=== PATIENT | female | born 1960 | race Caucasian/White ===

== ENCOUNTER → 2018-06-06 15:22 | Outpatient (CLI) | payer OTHER, SELFPAY | PROVIDERS: Family Provider Family Medicine; PCP Family Medicine; Referring Provider Otolaryngology Otolaryngology/Facial Plastic Surgery; Visit Provider Otolaryngology Otolaryngology/Facial Plastic Surgery | DX: J32.9 Chronic sinusitis, unspecified (principal); J02.9 Acute pharyngitis, unspecified | CPT/HCPCS: 87070 ==

== ENCOUNTER → 2018-09-27 | Outpatient (CLI) | payer OTHER, SELFPAY ==
--- NOTE | 2018-09-27 08:18 | BI_ITS ---
MAMMOGRAPHY - BILATERAL SCREENING REASON FOR EXAM: Female, 58 years old. Routine annual screening examination. PERTINENT HISTORY: Grandmother with breast cancer. TECHNIQUE: Digital bilateral breast gin (3D mammographic acquisition) in the CC and MLO projections. 2-D mediolateral oblique (MLO) and craniocaudad (CC) views of both breasts were obtained. CAD: Full Field Digital Mammography with Computer Added Detection was performed. COMPARISON: Comparison is made with prior examination dated March 30, 2016 and December 11, 2014. FINDINGS: Breast Composition: The breasts are heterogeneously dense, which may obscure small masses. There are no dominant masses or suspicious calcifications. Stable small bilateral axillary lymph nodes. No other significant abnormalities are identified. There has been no significant change since the prior study. BI/SCREEN MAMM (CAD) W/GIN BILAT IMPRESSION: Stable bilateral screening mammogram. Yearly follow-up mammogram recommended. (A) ASSESSMENT CATEGORY: BIRADS Category 2: Benign. A letter regarding these results will be sent to the patient by the facility within 30 days. Approximately 10% of breast cancers are not detected by mammography. A normal mammogram should not delay biopsy of a clinically suspicious abnormality. [id number] Electronically Signed: Jose Floyd, at 9:44 EDT , Service support ,
== END | disposition home or self-care (01) ==
LOC: OPBI 08:14
PROVIDERS: Family Provider Family Medicine; PCP Family Medicine
DX: Z12.31 Encounter for screening mammogram for malignant neoplasm of breast (principal)
CPT/HCPCS: 77063; 77067

== ENCOUNTER → 2020-06-18 08:20 | Outpatient (CLI) | payer OTHER, SELFPAY ==
--- NOTE | 2020-06-18 08:23 | BI_ITS ---
MAMMOGRAPHY - BILATERAL SCREENING REASON FOR EXAM: Female, 59 years old. Routine annual screening examination. PERTINENT HISTORY: Grandmother with breast cancer. TECHNIQUE: Digital bilateral breast gin (3D mammographic acquisition) in the CC and MLO projections. 2-D mediolateral oblique (MLO) and craniocaudad (CC) views of both breasts were obtained. CAD: Full Field Digital Mammography with Computer Added Detection was performed. COMPARISON: Comparison is made with prior study dated 09/27/2018 and 03/30/2016. FINDINGS: Breast Composition: The breasts are heterogeneously dense, which may obscure small masses. There are no dominant masses or suspicious calcifications. Stable benign-appearing bilateral axillary lymph nodes. No other significant abnormalities are identified. There has been no significant change since the prior study. BI/SCRN MAMM (CAD)W/GIN BILAT IMPRESSION: Stable bilateral screening mammogram. Yearly follow-up mammogram recommended. (A) ASSESSMENT CATEGORY: BIRADS Category 2: Benign. A letter regarding these results will be sent to the patient by the facility within 30 days. Approximately 10% of breast cancers are not detected by mammography. A normal mammogram should not delay biopsy of a clinically suspicious abnormality. [id number] Electronically Signed: Jose Floyd MD at 8:54 EST , Service support ,
== END ==
PROVIDERS: PCP Family Medicine; Referring Provider Nurse Practitioner Family; Visit Provider Nurse Practitioner Family
DX: Z12.31 Encounter for screening mammogram for malignant neoplasm of breast (principal)
CPT/HCPCS: 77063; 77067

== ENCOUNTER → 2021-06-26 08:02 | Outpatient (CLI) | payer OTHER, SELFPAY ==
--- NOTE | 2021-06-26 08:12 | BI_ITS ---
MAMMOGRAPHY - BILATERAL SCREENING REASON FOR EXAM: Female, 60 years old. Routine annual screening examination. PERTINENT HISTORY: Grandmother with breast cancer. TECHNIQUE: Digital bilateral breast gin (3D mammographic acquisition) in the CC and MLO projections. 2-D mediolateral oblique (MLO) and craniocaudad (CC) views of both breasts were obtained. CAD: Full Field Digital Mammography with Computer Added Detection was performed. COMPARISON: Comparison is made with prior study 06/18/2020 and 09/27/2018. FINDINGS: Breast Composition: The breasts are heterogeneously dense, which may obscure small masses. There are no dominant masses or suspicious calcifications. Stable small benign-appearing bilateral axillary lymph nodes. No other significant abnormalities are identified. There has been no significant change since the prior study. BI/SCRN MAMM (CAD)W/GIN BILAT IMPRESSION: Stable bilateral screening mammogram. Yearly follow-up mammogram recommended. (A) ASSESSMENT CATEGORY: BIRADS Category 2: Benign. A letter regarding these results will be sent to the patient by the facility within 30 days. Approximately 10% of breast cancers are not detected by mammography. A normal mammogram should not delay biopsy of a clinically suspicious abnormality. [id number] Electronically Signed: Jose Floyd MD at 9:20 EST ,
== END ==
PROVIDERS: PCP Family Medicine
DX: Z12.31 Encounter for screening mammogram for malignant neoplasm of breast (principal)
CPT/HCPCS: 77063; 77067

== ENCOUNTER 2021-09-02 10:30 | Outpatient (RCR) | payer OTHER, SELFPAY ==
--- NOTE | 2021-08-20 10:00 | HP.PTEVAL_ITS ---
Patient's Visit Information JERALD UNGER is a 61 year old F referred to Physical Therapy by Dr. Xavi Medley MD with a diagnosis of Right Partial Knee Replacement (08/13/21). Date of Evaluation: 08/20/21 Physical Therapist: Crystal Zamudio DPT - Visit Plan Frequency: 1-2x /Week Duration: 4 Weeks Plan: Right Partial Knee Replacement 08/13/21. HEP Given: seated heel slide, seated bolster extension, SLR, Quad set, Bolster extension supine, supine heel slide - Subjective Right partial knee replacement by Dr. Mcbride 08/13/2021. She stayed in the hospital for one day and then went home. Lives in a single story home with h usband with 2 step to enter- no problems getting in/out. Fully I prior to surgery- goal is to get back to doing all of those things with less pain. At home she is doing exercises from the MD. Patient reports that the pain is surgical site pain. Last night was a rough night due to being up on it a lot yesterday. Currently a 4/10. Worst: 9/10 Agg: being up on it. Best: 0/10 Eases: rest, elevation, ice. Pain is located in the medial knee and some mild pain down the adkins bone. Describes the pain as dull and achy. Sometimes she has shooting pains. No N/T. No change or loss of bowel or bladder. Sleep: hard to get comfortable and will wake her up- she is normally in the bed but she has gone to the couch/recliner. Normally very active. Work: retired- she has 3 acres so she does a lot of yard maintenance. PMHx: none Meds: Synthroid, vitamins- Tramadol and Tylenol PRN- does have Percocet- last night was the first time she took one. - Objective Posture: FH, RS can correct but does not maintain. Gait: antalgic- step to pattern with FWW- decreased stance on the right LE. HR/TR: able with UE A- reports discomfort with HR SLS: weight shift but unable to SLS without UE A. Observation: bandage on incision- no s/s of infection. Palpation: tender throughout knee medial and lateral joint line. Transfers: able without A but slow requires UE A. ROM2: 20-90 degrees with gentle overpressure into flexion. Girth: Patella: 41.5, 6 above: 52. Strength: Core: fair, Hip: 4/5 throughout SLR: moderate lag. Knee: flexion: 12. Extn: 8. Flex: HS: severe, Gastroc: severe. - Balance/Special Test Scores Lower Extremity Functional Score: 21 TUG Test Time Seconds: 28 WOMAC Total Score: 60 WOMAC Percentatge: 37.5000 - Goals Goal 1:: Patient will be I with HEP and progression Goal Time Frame: 4-6 Weeks Goal 2:: Patient will ambulate >300 feet with a normalized gait pattern Goal Time Frame: 4-6 Weeks Goal 3:: Patient will asc/desc 8 stairs recip with no HR Goal Time Frame: 4-6 Weeks Goal 4:: Patient will demo 0-115 degrees of ROM Goal Time Frame: 4-6 Weeks Goal 5:: Patient will perform TUG in less than 10 seconds with LRD Goal Time Frame: 4-6 Weeks - Rehabilitation Potential Physical Therapy Diagnosis: Patient presents s/p partial knee replacement- she has decreased ROM, LE and core strength/stabilization, flex, proprioception and muscular endurance leading to abnormal gait and decreased ability to perform ADL's. Rehabilitation Potential: Good - Anticipated Interventions Patient/Client Instruction: Educate patient on: Benefits of Fitness Program Therapeutic Exercise to Include: Strength training, Endurance training, Balance training, Coordination, Agility training, Body mechanics, Postural training, Flexibilty training, Gait and locomotor training, Neuromotor development, Passive ROM, Active ROM, Dynamic Lumbar Stabilization, Scapular Strength/Stabilization For the Purpose of:: To improve muscle performance and motor function TENS: Yes Thermo therapy (hot pack): Yes Ultrasound (thermal/non thermal): No - Joint Replacement Thank you for the opportunity to evaluate your patient. For Medicare and Medicare HMO plans, please review the plan of care and approve it. It will need to be FAXED BACK to us at [phone] for Medicare purposes. For Medicare only, by signing this I certify the plan of care. Please let me know if there are questions or concerns regarding this plan of care. Physician Signature: Date:
--- NOTE | 2021-09-02 11:01 | HP.PTEVAL ---
Patient's Visit Information JERALD UNGER is a 61 year old F referred to Physical Therapy by Dr. Xavi Medley MD with a diagnosis of Right Partial Knee Replacement (08/13/21). Date of Evaluation: 08/20/21 Physical Therapist: Crystal Zamudio DPT - Visit Plan Frequency: 1-2x /Week Duration: 4 Weeks Plan: 09/02/21: Discharge to HEP- encouraged to call if questions. Short term goal 110 by mid-next week. 08/24/21: Step Stretch and Rocking on the bike. Right Partial Knee Replacement 08/13/21. HEP Given: seated heel slide, seated bolster extension, SLR, Quad set, Bolster extension supine, supine heel slide - Subjective Right partial knee replacement by Dr. Mcbride 08/13/2021. She stayed in the hospital for one day and then went home. Lives in a single story home with with 2 step to enter- no problems getting in/out. Fully I prior to surgery- goal is to get back to doing all of those things with less pain. At home she is doing exercises from the MD. Patient reports that the pain is surgical site pain. Last night was a rough night due to being up on it a lot yesterday. Currently a 4/10. Worst: 9/10 Agg: being up on it. Best: 0/10 Eases: rest, elevation, ice. Pain is located in the medial knee and some mild pain down the adkins bone. Describes the pain as dull and achy. Sometimes she has shooting pains. No N/T. No change or loss of bowel or bladder. Sleep: hard to get comfortable and will wake her up- she is normally in the bed but she has gone to the couch/recliner. Normally very active. Work: retired- she has 3 acres so she does a lot of yard maintenance. PMHx: none Meds: Synthroid, vitamins- Tramadol and Tylenol PRN- does have Percocet- last night was the first time she took one. - Objective Posture: FH, RS can correct but does not maintain. Gait: antalgic- step to pattern with FWW- decreased stance on the right LE. HR/TR: able with UE A- reports discomfort with HR SLS: weight shift but unable to SLS without UE A. Observation: bandage on incision- no s/s of infection. Palpation: tender throughout knee medial and lateral joint line. Transfers: able without A but slow requires UE A. ROM2: 20-90 degrees with gentle overpressure into flexion. Girth: Patella: 41.5, 6 above: 52. Strength: Core: fair, Hip: 4/5 throughout SLR: moderate lag. Knee: flexion: 12. Extn: 8. Flex: HS: severe, Gastroc: severe. - Balance/Special Test Scores Lower Extremity Functional Score: 75 TUG Test Time Seconds: 6 WOMAC Total Score: 0 WOMAC Percentatge: 100 - Goals Goal 1:: Patient will be I with HEP and progression Goal Time Frame: 4-6 Weeks Goal 2:: Patient will ambulate >300 feet with a normalized gait pattern Goal Time Frame: 4-6 Weeks Goal 3:: Patient will asc/desc 8 stairs recip with no HR Goal Time Frame: 4-6 Weeks Goal 4:: Patient will demo 0-115 degrees of ROM Goal Time Frame: 4-6 Weeks Goal 5:: Patient will perform TUG in less than 10 seconds with LRD Goal Time Frame: 4-6 Weeks - Rehabilitation Potential Physical Therapy Diagnosis: Patient presents s/p partial knee replacement- she has decreased ROM, LE and core strength/stabilization, flex, proprioception and muscular endurance leading to abnormal gait and decreased ability to perform ADL's. Rehabilitation Potential: Good - Anticipated Interventions Patient/Client Instruction: Educate patient on: Benefits of Fitness Program Therapeutic Exercise to Include: Strength training, Endurance training, Balance training, Coordination, Agility training, Body mechanics, Postural training, Flexibilty training, Gait and locomotor training, Neuromotor development, Passive ROM, Active ROM, Dynamic Lumbar Stabilization, Scapular Strength/Stabilization For the Purpose of:: To improve muscle performance and motor function TENS: Yes Thermo therapy (hot pack): Yes Ultrasound (thermal/non thermal): No - Joint Replacement Thank you for the opportunity to evaluate your patient. For Medicare and Medicare HMO plans, please review the plan of care and approve it. It will need to be FAXED BACK to us at [phone] for Medicare purposes. For Medicare only, by signing this I certify the plan of care. Please let me know if there are questions or concerns regarding this plan of care. Physician Signature: Date:
--- NOTE | 2021-09-02 11:02 | HP.PTDCSUM ---
It has been my pleasure to treat JERALD UNGER referred by Dr. Xavi Medley MD, with the diagnosis of Right Partial Knee Replacement (08/13/21) for a total of 6 visit(s). Discharge Date: Please see the following information for a summary of their discharge status. Subjective: Patient reports that she is 95% back to normal. She push mowed the trim yesterday and her calf is a little sore. She feels that she can continue exercises at home. % Improvement: 95 Objective/Function: Posture: good throughout Gait: slight deviation- improving each visit SLS: 30 sec without LOB Observation: incision healing well Palpation: no pain ROM2: 0-125 degrees no OP. Girth: Patella: 40.5, 6 above: 52. Strength: Core: fair, Hip: 4+/5 throughout . Knee: flexion: 18. Extn: 36. Flex: HS: mild, Gastroc: mild Goal 1:: Patient will be I with HEP and progression Goal Progress: Goal Met Goal 2:: Patient will ambulate >300 feet with a normalized gait pattern Goal Progress: Goal Met Goal 3:: Patient will asc/desc 8 stairs recip with no HR Goal Progress: Goal Met Goal 4:: Patient will demo 0-115 degrees of ROM Goal 5:: Patient will perform TUG in less than 10 seconds with LRD Goal Progress: Goal Met Plan: 09/02/21: Discharge to HEP- encouraged to call if questions. Short term goal 110 by mid-next week. 08/24/21: Step Stretch and Rocking on the bike. Right Partial Knee Replacement 08/13/21. HEP Given: seated heel slide, seated bolster extension, SLR, Quad set, Bolster extension supine, supine heel slide If there are questions or concerns regarding this patient's physical therapy, please feel free to call me at [phone]. Thank you for the referral of this patient. Sincerely, Crystal Zamudio, DPT Balance/Gait/Functional tests - Balance/Special Test Scores Lower Extremity Functional Score: 75 TUG Test Time Seconds: 6 Tug Test: <10 sec.=free mobile WOMAC Total Score: 0 WOMAC Percentage: 100
== END 2021-09-02 19:00 | disposition home or self-care (01) ==
LOC: PT 10:30
PROVIDERS: PCP Family Medicine; Referring Provider Orthopaedic Surgery; Visit Provider Orthopaedic Surgery
DX: M17.11 Unilateral primary osteoarthritis, right knee (principal)
CPT/HCPCS: 97110; 97162; 97164

== ENCOUNTER → 2022-06-23 | Outpatient (CLI) | payer OTHER, SELFPAY ==
--- NOTE | 2022-06-23 06:58 | CT_ITS ---
STUDY: CT LEFT FOOT REASON FOR EXAM: Female, 61 years old. Puncture to heal. Evaluate for glass foreign body. RADIATION DOSAGE (If Supplied By Facility): CTDIvol = ( 15.35 ) mGy, DLP = ( 353.76 ) mGycm TECHNIQUE: Thin section transaxial imaging of the foot was obtained, with sagittal and coronal reconstructed images. Individualized dose optimization techniques were used for this CT. COMPARISON: None. FINDINGS: Normal talus, calcaneus, and tarsal bones. Normal visualized tibiotalar, subtalar, talonavicular, calcaneocuboid, tarsal and tarsometatarsal articulations. Normal metatarsi. Normal metatarsophalangeal joint of the great toe. Normal tibial and fibular sesamoid bones. Normal interphalangeal joint of the great toe. Normal phalanges of the great toe. Normal second through fifth metatarsophalangeal joints. Normal interphalangeal joints and phalanges of the lesser toes. Soft tissue swelling over the plantar surface of the foot adjacent to the calcaneus. No radiographic foreign body identified. CT/Extremity Lower without Contra IMPRESSION: Soft tissue swelling with no radiographic foreign body. Electronically Signed: Miguel A Olvera, at 11:13 EST ,
== END | disposition home or self-care (01) ==
LOC: CT 06:56
PROVIDERS: PCP Family Medicine; Referring Provider Student in an Organized Health Care Education/Training Program; Visit Provider Student in an Organized Health Care Education/Training Program
DX: S91.342A Puncture wound with foreign body, left foot, initial encounter (principal)
CPT/HCPCS: 73700

== ENCOUNTER → 2022-06-29 | Outpatient (CLI) | payer OTHER, SELFPAY ==
--- NOTE | 2022-06-29 08:18 | BI_ITS ---
MAMMOGRAPHY - BILATERAL SCREENING 3-D TOMOSYNTHESIS REASON FOR EXAM: Female, 61 years old. Routine screening PERTINENT HISTORY: Grandmother with breast cancer.. TECHNIQUE: 2-D mammograms and 3-D Tomosynthesis of the breast (s) were performed. CAD was performed. COMPARISON: 06/18/2020 FINDINGS: The breast composition is heterogeneously dense that can obscure small breast masses. Scattered benign calcifications are seen. No dense spiculated masses or suspicious microcalcifications are identified. No architectural distortion is identified. There is no skin thickening or retraction. There has been no significant change since the prior study. BI/SCRN MAMM (CAD)W/GIN BILAT IMPRESSION: No mammographic signs of malignancy. Routine yearly mammograms recommended. ASSESSMENT CATEGORY: BIRADS Category 2: Benign. A letter regarding these results will be sent to the patient by the facility within 30 days. FOLLOW UP RECOMMENDATION: Yearly follow up mammogram recommended. (A) Approximately 10% of breast cancers are not detected by mammography. A normal mammogram should not delay biopsy of a clinically suspicious abnormality. Electronically Signed: Cyril Rivera MD at 9:26 EDT ,
== END | disposition home or self-care (01) ==
LOC: OPBI 08:17
PROVIDERS: PCP Family Medicine; Referring Provider Nurse Practitioner Family; Visit Provider Nurse Practitioner Family
DX: Z12.31 Encounter for screening mammogram for malignant neoplasm of breast (principal)
CPT/HCPCS: 77063; 77067

== ENCOUNTER → 2023-07-04 | Outpatient (CLI) | payer OTHER, SELFPAY ==
--- NOTE | 2023-07-04 08:37 | BI_ITS ---
MAMMOGRAPHY - BILATERAL SCREENING REASON FOR EXAM: Female, 62 years old. Routine annual screening examination. PERTINENT HISTORY: Grandmother with breast cancer. TECHNIQUE: Digital bilateral breast gin (3D mammographic acquisition) in the CC and MLO projections. 2-D mediolateral oblique (MLO) and craniocaudad (CC) views of both breasts were obtained. CAD: Full Field Digital Mammography with Computer Added Detection was performed. COMPARISON: Comparison is made with prior study dated June 29, 2022 and June 26, 2021. FINDINGS: Breast Composition: The breasts are heterogeneously dense, which may obscure small masses. There are no dominant masses or suspicious calcifications. No other significant abnormalities are identified. There has been no significant change since the prior study. BI/SCRN MAMM (CAD)W/GIN BILAT IMPRESSION: Stable bilateral screening mammogram. Yearly follow-up mammogram recommended. (A) ASSESSMENT CATEGORY: BIRADS Category 1: Negative. A letter regarding these results will be sent to the patient by the facility within 30 days. Approximately 10% of breast cancers are not detected by mammography. A normal mammogram should not delay biopsy of a clinically suspicious abnormality. [id number] Electronically Signed: Jose Floyd MD at 9:06 EDT ,
== END | disposition home or self-care (01) ==
LOC: OPBI 08:36
PROVIDERS: PCP Nurse Practitioner Family; Referring Provider Nurse Practitioner Family; Visit Provider Nurse Practitioner Family
DX: Z12.31 Encounter for screening mammogram for malignant neoplasm of breast (principal); Z80.3 Family history of malignant neoplasm of breast
CPT/HCPCS: 77063; 77067

== ENCOUNTER 2023-10-13 09:30 | Outpatient (RCR) | payer OTHER, SELFPAY ==
--- NOTE | 2023-09-15 10:59 | HP.PTEVAL ---
Patient's Visit Information Visit Information Visit Information: JERALD UNGER is a 63 year old F referred to Physical Therapy by Dr. Titi Joyner DPM with a diagnosis of Peroneal Tendinitis. Date of Evaluation: 09/15/23 Physical Therapist: Reginald Brown Visit Plan Frequency: 2x /Week Duration: 6 Weeks Subjective Subjective: Pt. is a 63 y.o. female who has been having left ankle and foot pain which has been going on since the beginning of the year with no specific injury that she is aware of. Her PLOF includes history of left heel pain with a wound that has since healed. She had recent x-ray of her ankle and foot which was negative. She denies any numbness or tingling in her foot but her toes with burn and feel like it is on fire. Pt. has difficulty with occasionally standing/walking, occasionally driving, walking on uneven ground, housework, and yard work. Pt. is retired and was a medical research scientist previously. Her goal with physical therapy is to have her foot/ankle to stop hurting. She had previous physical therapy for her right knee. Pt. rates left foot pain at 2/10 currently, at worst 9/10, at best 0/10 and describes the pain as burning, radiating, dull, and achy. She was previously taking Meloxicam but is not taking anything currently. Her PMH includes right partial knee replacement, bilateral carpal tunnel surgery, hysterectomy, and gall bladder removed. Her hobbies include hanging out with her friends and family. Objective Objective: Palpation- No tenderness to palpation Left ankle DF 10 degrees, PF 38 degrees, Inv 45 degrees, Ev 18 degrees Right ankle 13 degrees, PF 36 degrees, Inv 40 degrees, Ev 20 degrees Left hip flexion 5/5, abduction 5/5, adduction 5/5, extension 5/5, knee flexion 5/5, knee extension 5/5, ankle DF 5/5, PF 4+/5, Inv 5/5, Ev 4+/5 Right hip flexion 5/5, abduction 5/5, adduction 5/5, extension 5/5, knee flexion 5/5, knee extension 5/5, ankle DF 5/5, PF 5/5, Inv 5/5, Ev 5/5 Sensation- WNL bilateral lower extremities Special tests- Metatarsal squeeze [+], Anterior drawer [-], Talar tilt [-], Syndesmosis squeeze [-] Gait- Pt. ambulates with no gait deviations. Balance/Special Test Scores Lower Extremity Functional Score: 80 Goals Goal 1:: Pt. will improve left ankle strength to 5/5 for all motions in order to complete ADL's. Goal Time Frame: 4-6 Weeks Goal 2:: Pt. be able to walk at least 30 minutes with left ankle pain < 3/10. Goal Time Frame: 4-6 Weeks Goal 3:: Pt. will be able to drive with no left ankle pain. Goal Time Frame: 4-6 Weeks Goal 4:: Pt. will rate left ankle/foot pain at worst at 3/10 with ADL's. Goal Time Frame: 4-6 Weeks Goal 5:: Pt. will be able to walk on uneven ground with no ankle/foot pain. Goal Time Frame: 4-6 Weeks Rehabilitation Potential Physical Therapy Diagnosis: Decreased left ankle/foot strength, difficulty walking, and pain Rehabilitation Potential: Good Anticipated Interventions Patient/Client Instruction: Educate patient on: Condition and Plan of Care For the Purpose of:: To improve ability to perform ADL's, To improve performance and independence with ADL's, To assume or resume ADL's and To improve tolerance to ADL's Therapeutic Exercise to Include: Strength training, Balance training and Gait and locomotor training Comment: Continue with ankle/foot strengthening and balance exercises. For the Purpose of:: To decrease pain, To improve ability to perform ADL's, To improve performance and independence with ADL's, To improve balance, To assume or resume ADL's and To improve tolerance to ADL's Functional Training to Include: ADL Training and Gait training For the Purpose of:: To decrease pain, To improve ability to perform ADL's, To improve performance and independence with ADL's, To assume or resume ADL's and To improve tolerance to ADL's Manual Therapy Techniques to Include: Mobilization and Soft tissue mobilization For the Purpose of:: To decrease pain, To improve ability to perform ADL's, To improve performance and independence with ADL's, To assume or resume ADL's and To improve tolerance to ADL's Cryotherapy (ice pack, ice massage): Yes For the Purpose of:: To decrease pain, To improve ability to perform ADL's, To improve performance and independence with ADL's, To assume or resume ADL's and To improve tolerance to ADL's Text: Thank you for the opportunity to evaluate your patient. For Medicare and Medicare HMO plans, please review the plan of care and approve it. It will need to be FAXED BACK to us at [phone] for Medicare purposes. For Medicare only, by signing this I certify the plan of care. Please let me know if there are questions or concerns regarding this plan of care. Physician Signature: Date:
--- NOTE | 2023-10-13 10:17 | HP.PTDCSUM ---
Discharge Summary D/C summary: It has been my pleasure to treat JERALD UNGER referred by Dr. Titi Joyner DPM, with the diagnosis of Peroneal Tendinitis for a total of 8 visit(s). Discharge Date: 10/13/23 Please see the following information for a summary of their discharge status. Subjective Subjective: pt. reports being 80% better overall. pt. does have some pain with increased walking Pain L ankle: Pain Intensity (Out of 10): 0 L foot: Pain Intensity (Out of 10): 0 Objective Objective/Function: ROM: Pt. has full ROM of her L ankle wihtout increase in symptoms. MMT: symmetrical without increase in symptoms throughout BLEs. GAIT: Normal without increase in symptoms. STAIRS: Pt. has normal pattern without use of HR without Goals Goal 1:: Pt. will improve left ankle strength to 5/5 for all motions in order to complete ADL's. Goal Progress: Goal Met Goal 2:: Pt. be able to walk at least 30 minutes with left ankle pain < 3/10. Goal Progress: Goal Met Goal 3:: Pt. will be able to drive with no left ankle pain. Goal Progress: Goal Met Goal 4:: Pt. will rate left ankle/foot pain at worst at 3/10 with ADL's. Goal Progress: Goal Met Goal 5:: Pt. will be able to walk on uneven ground with no ankle/foot pain. Goal Progress: Goal Met Plan Plan: Pt. is overall doing great. She is I with HEP and will be DC from PT at this point in time. D/C Information d/c sentence: If there are questions or concerns regarding this patient's physical therapy, please feel free to call me at [phone]. Thank you for the referral of this patient. Sincerely, Rory Merrittos, DPT Balance/Gait/Functional tests Balance/Special Test Scores Lower Extremity Functional Score: 80
== END 2023-10-13 12:21 | disposition home or self-care (01) ==
LOC: PT 09:30
PROVIDERS: PCP Nurse Practitioner Family; Referring Provider Student in an Organized Health Care Education/Training Program; Visit Provider Student in an Organized Health Care Education/Training Program
DX: M76.62 Achilles tendinitis, left leg (principal)
CPT/HCPCS: 97110; 97161; 97530

== ENCOUNTER → 2024-07-26 | Outpatient (CLI) | payer OTHER, SELFPAY ==
--- NOTE | 2024-07-26 09:42 | BI_ITS ---
EXAM: SCRN MAMM (CAD)W/GIN BILAT 07/26/2024 CLINICAL HISTORY: F, Age 63 y/o , SCREENING TECHNIQUE: Bilateral screening digital breast tomosynthesis with 2D and 3D images. Computer aided detection. COMPARISON: Prior exam(s) dated 3, 06/29/2022. FINDINGS: TISSUE DENSITY: The breast tissue is composed of scattered area of fibroglandular density. Bilateral Breast Mammographic Findings: No significant masses, calcifications or other abnormalities are identified. BI/SCRN MAMM (CAD)W/GIN BILAT IMPRESSION: Right Breast: BIRADS 1 NEGATIVE. Left Breast: BIRADS 1 NEGATIVE. OVERALL FINAL ASSESSMENT: BIRADS 1 NEGATIVE. RECOMMENDATION: Routine annual follow-up in 1 Year A letter with findings and recommendations will be mailed to the patient. Reading Location: [id number]
== END | disposition home or self-care (01) ==
LOC: OPBI 09:40
PROVIDERS: PCP Nurse Practitioner Family; Referring Provider Nurse Practitioner Family; Visit Provider Nurse Practitioner Family
DX: Z12.31 Encounter for screening mammogram for malignant neoplasm of breast (principal)
CPT/HCPCS: 77063; 77067